=== PATIENT | male | born 1980 | race Caucasian/White ===

== ENCOUNTER 2019-09-20 03:51 | Observation (INO) ==
[2019-09-20] MEDS ORDERED: ONDANSETRON 4 MG/2 ML VIAL IV STA (04:21)
[2019-09-20] MEDS ORDERED: SODIUM CHLORIDE 0.9% 1,000 ML IV STA (04:21)
[2019-09-20] MEDS ORDERED: PANTOPRAZOLE 40 MG VIAL IV STA (04:21)
[2019-09-20] MEDS ORDERED: MORPHINE 4 MG/1 ML VIAL IV STA ×2 (04:21→08:03)
[2019-09-20 04:34] LABS: Basophils # 0.1 10*3/uL (0.0-0.2); Basophils % 0.4 % (0.0-0.8); Eosinophils # 0.7 10*3/uL (0.0-0.87); Eosinophils % 3.5 % (0.00-10.9); Hematocrit 42.2 VOL% (42.0-52.0); Hemoglobin 14.3 GM/DL (14.0-18.0); Immature Granulocytes % 0.6 %; Immature Granulocytes Absolute 0.12 #; Lymphocytes # 1.7 10*3/uL (1.4-4.0); Lymphocytes % 9.3 % (21.2-54.2); Mean Corpuscular HGB Conc 33.9 GM/DL (32-36); Mean Corpuscular Volume 91.9 FL (87-102); Mean Platelet Volume 8.8 FL (9.6-12.0); Monocytes % 6.7 % (1.7-12.7); Neutrophils % 79.5 % (38.7-73.9); Platelet Count 182 T/CUMM (130-400); Red Blood Count 4.59 MC/CUMM (3.8-5.5); Red Cell Distribution Width 12.7 % (9.3-17.3); White Blood Count 18.7 T/CUMM (4-12)
[2019-09-20 04:55] LABS: Albumin 3.8 G/DL (3.4-5.0); Bilirubin,Total 0.5 MG/DL (0.2-1.0); Calcium 8.5 MG/DL (8.5-10.1); Osmolality,Calculated 274.7 MOS/KG (273-304); Total Protein 6.4 G/DL (6.4-8.3)
[2019-09-20 05:18] LABS: Apearance,Urine CLEAR (Clear); Bacteria,Urine Occasional /HPF (Few); Bilirubin,Urine Negative (Negative); Blood, Urine Negative (Negative); Glucose,Urine (UA) Negative (Negative); Ketones,Urine Negative (Negative); Mucus,Urine Occasional /LPF (Occasional); Nitrite,Urine Negative (Negative); Protein,Urine Negative; RBC,Urine 1 /HPF (0-4); Squamous Epithelial Cell,Urine Occasional /HPF (0-10); Urine Color Yellow (Yellow); Urine Urobilinogen < 2.0 EU/DL (0.2-1.0); WBC,Urine <1 /HPF (0-6)
[2019-09-20] MEDS ORDERED: HYDROmorphone 2 MG/1 ML VIAL IV STA (05:51)
[2019-09-20] MEDS ORDERED: MEPERIDINE 25 MG/1 ML VIAL IV PRN (06:32)
[2019-09-20] MEDS ORDERED: diphenhydrAMINE 50 MG/1 ML VIAL IV PRN (06:32)
[2019-09-20] MEDS ORDERED: PROMETHAZINE INJ 25 MG in SODIUM CHLORIDE 0.9% 50 ML IV PRN (06:32)
[2019-09-20] MEDS ORDERED: ONDANSETRON 4 MG/2 ML VIAL IV PRN ×2 (06:32→06:38)
[2019-09-20] MEDS ORDERED: LEVOFLOXACIN INJ 500 MG in PREMIX 1 EACH IV STA (06:38)
[2019-09-20] MEDS ORDERED: metroNIDAZOLE INJ 500 MG in PREMIX 1 EACH IV STA (06:39)
[2019-09-20] MEDS ORDERED: LEVOFLOXACIN INJ 100 ML IV ONE (06:42)
[2019-09-20] MEDS ORDERED: DEXTROSE 5% NACL 0.45% 1,000 ML IV SCH (07:00)
[2019-09-20] MEDS ORDERED: PANTOPRAZOLE 40 MG TABLET PO SCH (09:00)
[2019-09-20] MEDS ORDERED: BUPIVACAINE MPF 0.25% 30 ML VIAL ONE (10:00)
[2019-09-20] MEDS ORDERED: TISSUE ADHESIVE 1 EACH APPLICATOR TOP ONE (10:00)
[2019-09-20] MEDS ORDERED: LIDOCAINE 1%/EPI INJ 20 ML VIAL ONE (10:00)
[2019-09-20] MEDS ORDERED: PROMETHAZINE 25 MG/1 ML VIAL ONE (11:29)
[2019-09-20] MEDS ORDERED: propofoL 200 MG/20 ML VIAL IV ONE (11:34)
[2019-09-20] MEDS ORDERED: LIDOCAINE 2% 5 ML VIAL ONE (11:34)
[2019-09-20] MEDS ORDERED: SEVOFLURANE 1 UNIT/15 MINUTE INH ONE (11:34)
[2019-09-20] MEDS ORDERED: MIDAZOLAM 2 MG/2 ML VIAL ONE (11:34)
[2019-09-20] MEDS ORDERED: GLYCOPYRROLATE 0.4 MG/2 ML VIAL ONE (11:35)
[2019-09-20] MEDS ORDERED: fentaNYL 100 MCG/2 ML VIAL ONE (11:35)
[2019-09-20] MEDS ORDERED: ACETAMINOPHEN 1,000 MG/100 ML VIAL IV ONE (11:35)
[2019-09-20] MEDS ORDERED: ROCURONIUM 100 MG/10 ML VIAL IV ONE (11:35)
[2019-09-20] MEDS ORDERED: DEXAMETHASONE 4 MG/1 ML VIAL ONE (11:35)
[2019-09-20] MEDS ORDERED: KETOROLAC 30 MG/1 ML VIAL ONE (11:35)
[2019-09-20] MEDS ORDERED: ONDANSETRON 4 MG/2 ML VIAL ONE (11:35)
[2019-09-20] MEDS ORDERED: SUCCINYLCHOLINE 200 MG/10 ML VIAL ONE (11:35)
[2019-09-20] MEDS ORDERED: NEOSTIGMINE 10 MG/10 ML VIAL ONE (11:36)
[2019-09-20] MEDS ORDERED: LACTATED RINGERS 1,000 ML IV ONE (11:36)
[2019-09-20] MEDS ORDERED: METOCLOPRAMIDE 10 MG/2 ML VIAL ONE (11:40)
[2019-09-20] MEDS ORDERED: MEPERIDINE 25 MG/1 ML VIAL ONE (11:40)
[2019-09-20] MEDS ORDERED: METOCLOPRAMIDE 10 MG/2 ML VIAL IV ONE (11:47)
[2019-09-20] MEDS: DEXTROSE 5% LACTATED RINGERS 1,000 ML IV SCH ×2 (11:58→20:48)
[2019-09-20 12:04] LABS: Hematocrit 42.6 VOL% (42.0-52.0); Hemoglobin 14.1 GM/DL (14.0-18.0)
[2019-09-20] MEDS: CLINDAMYCIN INJ 900 MG in PREMIX 1 EACH IV SCH (16:56)
[2019-09-20] MEDS: ONDANSETRON 4 MG/2 ML VIAL IV PRN ×2 (19:18→23:37)
[2019-09-20] MEDS: MORPHINE 4 MG/1 ML VIAL IV PRN ×2 (19:22→23:36)
[2019-09-20 19:24] LABS: Hematocrit 40.4 VOL% (42.0-52.0); Hemoglobin 13.5 GM/DL (14.0-18.0)
[2019-09-21] MEDS: CLINDAMYCIN INJ 900 MG in PREMIX 1 EACH IV SCH (01:53)
[2019-09-21 03:47] LABS: Hematocrit 38.4 VOL% (42.0-52.0)
[2019-09-21 04:18] LABS: Albumin 3.3 G/DL (3.4-5.0); Bilirubin,Total 0.6 MG/DL (0.2-1.0); Calcium 8.5 MG/DL (8.5-10.1); Osmolality,Calculated 278.4 MOS/KG (273-304); Total Protein 6.2 G/DL (6.4-8.3)
[2019-09-21] MEDS ORDERED: LEVOFLOXACIN INJ 500 MG in PREMIX 1 EACH IV SCH (06:00)
[2019-09-21] MEDS: MORPHINE 4 MG/1 ML VIAL IV PRN ×2 (08:07→13:00)
[2019-09-21] MEDS: ONDANSETRON 4 MG/2 ML VIAL IV PRN ×2 (08:10→13:28)
[2019-09-21] MEDS: DEXTROSE 5% LACTATED RINGERS 1,000 ML IV SCH ×2 (10:38→11:21)
[2019-09-21 13:07] VITALS: BP 92/50
== END 2019-09-21 13:40 | disposition home or self-care (01) ==
LOC: EDUNIT# → EDBD → N.EDINP 03:51 → N.ED 03:51 → N.EDINP 08:45 → N.3E 09:14
PROVIDERS: ADMIT Surgery; ATTEND Surgery
PROC: LAPCHOL (2019-09-20 09:57)